=== PATIENT | female | born 1965 | race Caucasian/White ===

== ENCOUNTER 2025-02-14 10:21 | Emergency (ER) | payer OTHER, SELFPAY ==
[2025-02-14 10:36] VITALS: BP 157/94
[2025-02-14 11:06] LABS: % Basophils 0.3 % (0-2); % Eosinophils 0.3 % (0-6); % Immature Granulocytes 0.2 % (0-0.5); % Lymphocytes 29.5 % (20.5-51.1); % Monocytes 8.6 % (1.7-9.3); % Neutrophils 61.1 % (42.2-75.2); Absolute Lymphocytes 1.9 10^3/uL (1.2-3.4); Absolute Monocytes 0.6 10^3/uL (0.1-0.6); Absolute Neutrophils 3.9 10^3/uL (1.4-6.5); Hematocrit 39.5 % (37.0-47.0); Hemoglobin 13.5 g/dL (12.0-16.0); Mean Corp Hgb Conc. 34.2 g/dL (33.0-37.0); Mean Corpuscular Hgb 28.7 pg (27.0-31.0); Mean Corpuscular Volume 83.9 fL (81.0-99.0); Mean Platelet Volume 8.9 fL (7.4-10.4); Nucleated Red Blood Cells % 0 %; Platelet Count 302 10^3/uL (130-400); Red Blood Cell Count 4.71 10^6/uL (4.20-5.40); Red Cell Dist. Width 12.9 % (11.5-14.5); White Blood Cell Count 6.4 10^3/uL (4.8-10.8)
[2025-02-14 11:27] LABS: ALT (SGPT) 33 U/L (0-35); AST (SGOT) 29 U/L (14-36); Alkaline Phosphatase 75 U/L (38-126); Blood Urea Nitrogen 17 mg/dl (7-17); Calcium 9.7 mg/dl (8.4-10.2); Carbon Dioxide 27 mmol/L (22-30); Chloride 108 mmol/L (98-107); Glucose 93 mg/dl (70-99); Lipase 91 U/L (23-300); Sodium 141 mmol/L (135-145); Total Bilirubin 0.6 mg/dl (0.2-1.3); Total Protein 7.7 g/dl (6.3-8.2); eGFR > 60.00
[2025-02-14 11:31] LABS: Troponin I < 0.012 ng/ml
[2025-02-14 12:00] VITALS: BP 138/60
--- NOTE | 2025-02-14 12:45 | ED.GENMED ---
History of Present Illness
General
Chief Complaint: Blood Pressure Problem
Source: patient
Exam Limitations: none
Time Seen by Provider: 02/14/25 12:03
Nursing documentation reviewed up to this point in time: agreed with
History of Present Illness
History of Present Illness:
pt is a 59 y/o F with h/o HTN, GERD, IBS, anxiety
here with chest pain that started at 930 am while at work
says it felt like a sharp pressure in her L chest which felt better if she pressed it in, worse if she release
Course
Orders/Labs/Results
Orders:
Orders
02/14/25 10:23
EKG [Electrocardiogram (*1)] Urgent
Reason for Study: Chest Pain
02/14/25 10:24
EKG- Treatment ONCE
02/14/25 10:53
Complete Blood Count/With Diff Urgent
Comprehensive Metabolic Panel Urgent
Lipase Urgent
Troponin I Urgent
02/14/25 12:33
EKG- Treatment ONCE
Famotidine [Pepcid] 20 mg PO NOW STA
Mag Hydrox/Al Hydrox/Simeth [Maalox] 30 ml Phenobarb/Hyoscy/Atropine/Scop [] 10 ml PO NOW
02/14/25 12:34
CR Chest - 2 Views Urgent
Comment:
Reason For Exam: chest pain
02/14/25 14:30
Electrocardiogram (*1) Urgent
Reason for Study: Chest Pain
Troponin I Urgent
Abnormal Lab Results
02/14/25
10:53
Chloride 108 H mmol/L
(98-107)
02/14/25 10:53
02/14/25 10:53
Vital Signs
Initial and Last Documented VS:
Initial Vital Signs
Temp Pulse Resp BP Pulse Ox
37.1 C 72 18 157/94 98
02/14/25 10:36 02/14/25 10:36 02/14/25 10:36 02/14/25 10:36 02/14/25 10:36
Last Documented Vital Signs
Temp Pulse Resp BP Pulse Ox
37.1 C 55 12 138/60 97
02/14/25 10:36 02/14/25 12:15 02/14/25 12:15 02/14/25 12:00 02/14/25 12:15
ED Attending Note
-
Portions of this chart may have been created with voice recognition software.� Occasional wrong word or��sound alike� substitutions may have occurred due to the inherent limitations of voice recognition software.
Discharge Plan
Interventions
Interventions:
*Risk Screen - Suicide Last Done: 02/14/25 10:36
*General Assessment Last Done: 02/14/25 10:36
*Neglect/Abuse Screening Last Done: 02/14/25 10:36
*ED- Fall Risk Assessment Last Done: 02/14/25 10:36
*ED COVID-19 Vaccine History Last Done: 02/14/25 10:36
ED- Cardiac Assessment Last Done: 02/14/25 12:06
ED- Neurological Assessment Last Done: 02/14/25 12:06
ED- Pulmonary Assessment Last Done: 02/14/25 12:06
Discharge Date and Time
Print Language: TAMAZIGHT
[2025-02-14] MEDS: MAALOX 40 PO (12:50)
[2025-02-14] MEDS: PEPCID 20 MG PO (12:50)
[2025-02-14 13:00] VITALS: BP 130/64
[2025-02-14 13:21] VITALS: BP 107/67
[2025-02-14 14:00] VITALS: BP 126/59
[2025-02-14 15:00] VITALS: BP 131/98
[2025-02-14 15:05] LABS: Troponin I < 0.012 ng/ml
== END 2025-02-14 15:55 | disposition home or self-care (01) ==
LOC: EMR 10:21
PROVIDERS: Physician Assistant; EMERGENCY PHYSICIAN Emergency Medicine; FAMILY PHYSICIAN Family Medicine
DX: R07.9 Chest pain, unspecified (principal); I10 Essential (primary) hypertension; K21.9 Gastro-esophageal reflux disease without esophagitis
CPT/HCPCS: 99285; 71046; 80053; 83690; 84484; 85025; 93005

== ENCOUNTER → 2025-04-02 15:03 | Outpatient (REF) | payer OTHER, SELFPAY | LOC: DHSLP 15:03 | PROVIDERS: ATTENDING PHYSICIAN Internal Medicine Critical Care Medicine; FAMILY PHYSICIAN Family Medicine | DX: G47.33 Obstructive sleep apnea (adult) (pediatric) (principal) | CPT/HCPCS: 95800 ==

== ENCOUNTER 2025-05-29 10:43 | Emergency (ER) | payer OTHER, SELFPAY ==
[2025-05-29 10:47] VITALS: BP 150/88
[2025-05-29 11:11] VITALS: BP 120/60
[2025-05-29 11:30] LABS: Hematocrit 38.5 % (37.0-47.0); Hemoglobin 12.8 g/dL (12.0-16.0); Mean Corp Hgb Conc. 33.2 g/dL (33.0-37.0); Mean Corpuscular Volume 83.9 fL (81.0-99.0); Nucleated Red Blood Cells % 0 %; Platelet Count 295 10^3/uL (130-400); Red Cell Dist. Width 12.9 % (11.5-14.5)
[2025-05-29 11:40] LABS: ALT (SGPT) 30 U/L (0-35); AST (SGOT) 29 U/L (14-36); Albumin 4.2 g/dl (3.5-5.0); Alkaline Phosphatase 86 U/L (38-126); Blood Urea Nitrogen 19 mg/dl (7-17); Calcium 9.8 mg/dl (8.4-10.2); Carbon Dioxide 28 mmol/L (22-30); Chloride 106 mmol/L (98-107); Glucose 95 mg/dl (70-99); Potassium 4.0 mmol/L (3.5-5.1); Sodium 138 mmol/L (135-145); Total Protein 7.4 g/dl (6.3-8.2); eGFR > 60.00
--- NOTE | 2025-05-29 11:45 | ED.GENMED ---
History of Present Illness
General
Chief Complaint: Chest Pain
Source: patient
Exam Limitations: none
Time Seen by Provider: 05/29/25 10:56
Nursing documentation reviewed up to this point in time: agreed with
History of Present Illness
History of Present Illness:
60 yo female w h/o anxiety, HTN, HLD, GERD presents with chest pain and a fluttering sensation. She describes the chest pain as a 'gripping pain' located in the mid-left region of her chest. 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
persisted for over an hour, from approximately 9:45 AM until her arrival here. Alongside the chest pain, she experienced episodes of dizziness and nausea, resolving upon arrival. The patient notes a history of anxiety but distinguishes this
experience as different from a typical anxiety attack. She was evaluated six weeks ago for similar chest pain; during that visit, a nurse told her her oxygen 'dropped' while she was sleeping. Her father 'of a heart attack from sleep apnea' and
she fears this. She followed up with [employer] Dr. Norwood and has been using CPAP but states it comes off often or doesn't work well, she reports difficulty maintaining its use throughout the night. She is on medications namely, propranolol
(started 2 months ago) and losartan to manage blood pressure. She denies pain, SOB, nausea now.
Meds: Propranolol
Losartan
Pristiq
BuSpar
Abilify
Past History
Past History
ED Past Medical History: GERD, HTN, Hypercholesterolemia and Psychiatric
Social History
Tobacco: Former smoker
Alcohol: Occasional
Drug: None
Personal:
Living: with family
Employment: Employed
Family History
Family History: Negative Early CAD or Sudden
Review of Systems
Review of Systems
Allergies reviewed?: Yes
All Other Systems: ROS reviewed and negative except as documented in HPI and ROS
Constitutional: Denies fever or fatigue
Respiratory: Denies trouble breathing
Cardiac: Reports chest pain and palpitations; Denies diaphoresis or syncope
ABD/GI: Reports nausea; Denies abdominal pain, vomiting, diarrhea, constipated or anorexia
: Denies dysuria
Musculoskeletal: Reports no symptoms
Skin: Reports no symptoms
Neurological: Reports no symptoms
Psychiatric: Reports anxiety (denies feeling anxious)
Phy Exam
Physical Exam
Physical Exam:
GENERAL: No acute distress. A&Ox3.
CONSTITUTIONAL: Afebrile.
EYES: clear, conjunctivae normal
ENMT: moist mucus membranes, Pharynx nl
RESPIRATORY: Regular respirations, nonlabored, lungs clear.
CARDIOVASCULAR: Regular rate and rhythm, no murmurs, no rubs.
GI: Soft, nontender, normal BS
MUSCULOSKELETAL: Moves with ease. Well perfused.
SKIN: Warm, dry, pink
PSYCH: Normal mood and affect. Well kept, interactive and appropriate
NEUROLOGIC: Awake, alert and oriented. No focal neurological deficits
Scores
Heart Score for Chest Pain Patients
STEMI patient?: Not applicable
Course
Orders/Labs/Results
Orders:
Orders
05/29/25 10:43
EKG [Electrocardiogram (*1)] Urgent
Reason for Study: Chest Pain
05/29/25 10:44
EKG- Treatment ONCE
05/29/25 11:21
Complete Blood Count/With Diff Urgent
Comprehensive Metabolic Panel Urgent
Troponin I Urgent
CR Chest - 2 Views Urgent
Comment:
Reason For Exam: Chest pain
05/29/25 13:27
HYDROmorphone [Dilaudid] 1 mg IV NOW STA
Ondansetron Injectable [Zofran] 4 mg IV NOW STA
05/29/25 13:55
Troponin I Urgent
Abnormal Lab Results
05/29/25
11:21
Monocytes % 10.7 H %
(1.7-9.3)
BUN 19 H mg/dl
(7-17)
05/29/25 11:21
05/29/25 11:21
Vital Signs
Initial and Last Documented VS:
Initial Vital Signs
Temp Pulse Resp BP Pulse Ox
98.4 F 54 18 150/88 98
05/29/25 10:47 05/29/25 10:47 05/29/25 10:47 05/29/25 10:47 05/29/25 10:47
Last Documented Vital Signs
Temp Pulse Resp BP Pulse Ox
98.4 F 58 16 132/74 98
05/29/25 10:47 05/29/25 14:44 05/29/25 14:44 05/29/25 14:44 05/29/25 14:44
MDM/Problems Addressed
Differential Diagnosis Includes:
MN, Angina, dysrhythmia, anxiety related, GERD
MDM/Problems Addressed:
60 yo female w h/o anxiety, HTN, HLD, GERD presents with chest pain and a fluttering sensation. She describes the chest pain as a 'gripping pain' located in the mid-left region of her chest. 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
persisted for over an hour, from approximately 9:45 AM until her arrival here. Alongside the chest pain, she experienced episodes of dizziness and nausea, resolving upon arrival. The patient notes a history of anxiety but distinguishes this
experience as different from a typical anxiety attack. She was evaluated six weeks ago for similar chest pain; during that visit, a nurse told her her oxygen 'dropped' while she was sleeping. Her father 'of a heart attack from sleep apnea' and
she fears this. She followed up with [employer] Dr. Norwood and has been using CPAP but states it comes off often or doesn't work well, she reports difficulty maintaining its use throughout the night. She is on medications namely, propranolol
(started 2 months ago) and losartan to manage blood pressure. She denies pain, SOB, nausea now.
EKG: NSR
CBC normal
CMP normal
Troponin normal
Chest x-ray NAD
2:00 PM:
Troponin #2 normal
Patient reassured no indication of a heart attack
Her symptoms most likely related to her anxiety
Stable for discharge to f/u with PCP, address CPAP issues with her ordering doctor.
*Pulse Oximetry
SaO2: 98
Oxygen Mode of Delivery: Room air
Patient hypoxic: no
*Critical Care Note
Total Time (30-74mins, 75-104mins- exclusive of procedures): Not Applicable
ED Attending Note
-
Portions of this chart may have been created with voice recognition software.� Occasional wrong word or��sound alike� substitutions may have occurred due to the inherent limitations of voice recognition software.
Discharge Plan
Departure
Patient Disposition: Home (Routine Discharge)
Date of Disposition: 05/29/25
Time of Disposition: 14:28
Patient with high blood pressure during this ER visit?: No
Condition: Good
Discharge Problem:
Atypical chest pain, Anxiety about health
Instructions: Chest Pain That Is Not Caused by the Heart (DC), Anxiety in adults - ED (DC)
Referrals:
Genaro Boles, DO [Family Provider, Family Practice] - As needed
Activity Restrictions/Additional Instructions:
Has been discussed, your workup here today shows nothing worrisome, specifically no indication of a heart attack.
Please discuss your issues with your CPAP machine with the ordering doctor or the company.
If you feel you need something to control your anxiety please discuss with your primary doctor.
Interventions
Interventions:
*Risk Screen - Suicide Last Done: 05/29/25 10:47
*General Assessment Last Done: 05/29/25 10:47
*Neglect/Abuse Screening Last Done: 05/29/25 10:47
*ED- Fall Risk Assessment Last Done: 05/29/25 10:57
*ED COVID-19 Vaccine History Last Done: 05/29/25 10:57
*Nursing Disposition Last Done: 05/29/25 14:45
ED- Cardiac Assessment Last Done: 05/29/25 10:58
Discharge Date and Time
Discharge Date/Time: 05/29/25 14:49
Print Language: [id number]
[2025-05-29 11:51] LABS: Troponin I < 0.012 ng/ml
[2025-05-29 12:00] VITALS: BP 132/66
[2025-05-29 14:23] LABS: Troponin I < 0.012 ng/ml
[2025-05-29 14:44] VITALS: BP 132/74
== END 2025-05-29 14:49 | disposition home or self-care (01) ==
LOC: EMR 10:43
PROVIDERS: Registered Nurse; EMERGENCY PHYSICIAN Emergency Medicine; FAMILY PHYSICIAN Family Medicine
DX: R07.89 Other chest pain (principal); I10 Essential (primary) hypertension; E78.00 Pure hypercholesterolemia, unspecified; K21.9 Gastro-esophageal reflux disease without esophagitis; F41.9 Anxiety disorder, unspecified; Z71.1 Person with feared health complaint in whom no diagnosis is made; Z87.891 Personal history of nicotine dependence; Z82.49 Family history of ischemic heart disease and other diseases of the circulatory system
CPT/HCPCS: 99284; 71046; 80053; 84484; 85025; 93005